=== PATIENT | male | born 1985 | race Caucasian/White ===

== ENCOUNTER 2020-04-02 13:13 | Emergency (ER) | payer SELFPAY ==
[~2020-04-02] VITALS: Ht 175.2 cm; Wt 59.0 kg
--- NOTE | 2020-04-02 13:51 | NUR ---
UPDATE TO MOTHER
[2020-04-02] MEDS ORDERED: NS IV 1000 ML 1,000 ML IV SCH (13:53)
[2020-04-02] MEDS ORDERED: HYDROcodone/APAP 7.5 MG/325 MG (LORTAB, LORCET PLUS) TABLET PO ONE (14:00)
[2020-04-02 14:19] LABS: BASOPHILS % (AUTO) 0 % (0-10); EOSINOPHILS # (AUTO) 0.1 10^3/uL (0.0-0.3); EOSINOPHILS % (AUTO) 1 % (0-10); HEMATOCRIT 37 % (40-54); HEMOGLOBIN 12.7 G/DL (13.3-17.7); LYMPHOCYTES # (AUTO) 1.4 X 10^3 (1.0-4.0); LYMPHOCYTES % (AUTO) 10 % (12-44); MEAN CORPUSCULAR HEMOGLOBIN 30 PG (25-34); MEAN CORPUSCULAR HGB CONC 34 G/DL (32-36); MEAN CORPUSCULAR VOLUME 89 FL (80-99); MEAN PLATELET VOLUME 11.1 FL (7.4-10.4); MONOCYTES % (AUTO) 7 % (0-12); NEUTROPHILS # (AUTO) 10.9 X 10^3 (1.8-7.8); NEUTROPHILS % (AUTO) 82 % (42-75); PLATELET COUNT 219 10^3/uL (130-400); WHITE BLOOD COUNT 13.3 10^3/uL (4.3-11.0)
[2020-04-02 14:29] LABS: ALBUMIN 3.3 GM/DL (3.2-4.5); CHLORIDE 95 MMOL/L (98-107); POTASSIUM 3.7 MMOL/L (3.6-5.0); SODIUM 131 MMOL/L (135-145)
[2020-04-02 14:30] LABS: CALCIUM 8.8 MG/DL (8.5-10.1)
[2020-04-02 14:32] LABS: INR 0.8 (0.8-1.4); PROTHROMBIN TIME PATIENT 11.5 SEC (12.2-14.7)
[2020-04-02 14:33] LABS: BILIRUBIN,TOTAL 0.4 MG/DL (0.1-1.0); CARBON DIOXIDE 26 MMOL/L (21-32)
[2020-04-02 14:35] LABS: ALKALINE PHOSPHATASE 164 U/L (40-136); CREATININE SERUM 1.06 MG/DL (0.60-1.30); GFR ESTIMATED > 60; GLUCOSE 605 MG/DL (70-105)
[2020-04-02 14:36] LABS: BUN/CREATININE RATIO 11
[2020-04-02] MEDS ORDERED: inSUlin (REGULAR) HUMAN 1 UNIT/0.01 ML (CHARGE PER UNIT) SC STA (14:37)
[2020-04-02 14:38] LABS: ALANINE AMINOTRANSFERASE 70 U/L (0-55)
--- NOTE | 2020-04-02 14:51 | NUR ---
TO MRI PER W/C
--- NOTE | 2020-04-02 14:51 | NUR ---
2ND BLOOD CUTURE DRAWN BY LAB
[2020-04-02] MEDS ORDERED: PIPERACILLIN SODIUM/TAZOBACTAM 4.5 GM in NS (IVPB) 100 ML IV ONE (15:45)
[2020-04-02] MEDS ORDERED: VANCOMYCIN INJECTION 1,000 MG in NS (IVPB) 250 ML IV ONE (15:45)
--- NOTE | 2020-04-02 15:56 | ED General ---
General Chief Complaint: General Problems/Pain Stated Complaint: HIGH BLOOD SUGAR/ ARM INFECTION Nursing Triage Note: AMB TO ROOM REPORTS IS TYPE I DIABETIC HAS NOT BEEN GOOD ABOUT SEEING HIS DR AND CHECKING HIS GLUCOSE. R ARM IS SWOLLEN USED IV METH 1 WEEK AGO. AND HELPED A FRIEND PULL OUT STAKES IN [place]ARD[place] NOTICED AFTER COULD NOT USE R ARM. ARM SWOLLEN. PATIENT REPORTS WAS DRINKING Nursing Sepsis Screen: No Definite Risk History of Present Illness Date Seen by Provider: Apr 02, 2020 Time Seen by Provider: 13:30 Initial Comments 34-year-old male who is a type I diabetic reports noticing erythema and pain in his right elbow for the last 3-4 days. He uses IV methamphetamines, last time was approximately one week and he did access at Right . He also reports 3-4 days ago he was helping pull fence with a friend and felt a tear in his right elbow and is concerned about his biceps tendon. He's been unable to flex or extend his right elbow secondary to the pain. He has no history of Wednesday elbow or arm injuries in the past. He uses Novolog 70/30 over the counter, no PCP. Is from [place], [place]. Plans to establish care with [facility]. Timing/Duration: 3-4 Days Severity: Severe Associated Systoms: No Fever/Chills; Malaise Allergies and Home Medications Allergies Coded Allergies: ketorolac (Verified Allergy, Unknown, 04/02/20) Patient Home Medication List Home Medication List Reviewed: Yes Review of Systems Review of Systems Constitutional: no symptoms reported, see HPI Musculoskeletal: see HPI, joint pain (right elbow) Skin: see HPI, other (erythema, warmth and swelling right upper extremity) All Other Systems Reviewed Negative Unless Noted: Yes Past Mmvjhsq-Gielyi-Amkjdf Hx Past Med/Social Hx: Reviewed Nursing Past Med/Soc Hx Patient Social History Alcohol Use: Denies Use Recreational Drug Use: Yes (METH AND POT) Smoking Status: Never a Smoker Recent Foreign Travel: No Contact w/Someone Who Travel: No Recent Infectious Disease Expo: No Past Medical History Surgeries: No Respiratory: No Cardiac: No Neurological: No Genitourinary: No Gastrointestinal: No Musculoskeletal: No Endocrine: Yes Diabetes, Insulin dep HEENT: No Cancer: No Psychosocial: No Integumentary: No Physical Exam Vital Signs Vital Signs - First Documented 04/02/20 04/02/20 13:27 17:00 Temp 36.9 Pulse 100 Resp 18 B/P (MAP) 130/83 (99) Pulse Ox 98 O2 Delivery Room Air Capillary Refill : Less Than 3 Seconds Height, Weight, BMI Height: '" Weight: lbs. oz. kg; 19.00 BMI Method: General Appearance: No Apparent Distress, WD/WN Eyes: Bilateral Eye Normal Inspection, Bilateral Eye PERRL, Bilateral Eye EOMI HEENT: PERRL/EOMI, TMs Normal, Normal ENT Inspection, Pharynx Normal Neck: Full Range of Motion, Normal Inspection, Non Tender, Supple Respiratory: Chest Non Tender, Lungs Clear, Normal Breath Sounds Cardiovascular: Regular Rate, Rhythm, No Edema, No Murmur, Normal Peripheral Pulses Gastrointestinal: Normal Bowel Sounds, Non Tender, Soft Extremity: Normal Capillary Refill, Normal Range of Motion (except right elbow) Neurologic/Psychiatric: Alert, Oriented x3, No Motor/Sensory Deficits, Normal Mood/Affect Skin: Normal Color, Warm/Dry Lymphatic: Other (right epitrochlear node tenderness) Comments Marked limitation of motion to right elbow, active and passive, secondary to pain. Neg wade sign. Tenderness at distal insertion of bicep tendon. Pain with resisted flexion of right elbow. Erythema to right elbow and [id number] cm. No abscess, mild induration, no fluctuance. Neuro vasc status intact right UE. No edema to right hand. Focused Exam Lactate Level 04/02/20 14:47: Lactic Acid Level 1.69 Lactic Acid Level Progress/Results/Core Measures Suspected Sepsis Recent Fever Within 48 Hours: No Infection Criteria Present: None New/Unexplained Altered Menta: No Sepsis Screen: No Definite Risk SIRS Temperature: Pulse: 100 Respiratory Rate: 18 Laboratory Tests 04/02/20 14:09: White Blood Count 13.3H Blood Pressure 130 /83 Mean: 99 04/02/20 14:47: Lactic Acid Level 1.69 Laboratory Tests 04/02/20 14:09: Creatinine 1.06, INR Comment 0.8, Platelet Count 219, Total Bilirubin 0.4 Results/Orders Lab Results Laboratory Tests Test 04/02/20 13:55 04/02/20 14:09 04/02/20 14:47 04/02/20 15:49 Range/Units Glucometer 546 *H 398 H 70-110 MG/DL White Blood Count 13.3 H 4.3-11.0 10^3/uL Red Blood Count 4.19 L 4.35-5.85 10^6/uL Hemoglobin 12.7 L 13.3-17.7 G/DL Hematocrit 37 L 40-54 % Mean Corpuscular Volume 89 80-99 FL Mean Corpuscular Hemoglobin 30 25-34 PG Mean Corpuscular Hemoglobin Concent 34 32-36 G/DL Red Cell Distribution Width 13.4 10.0-14.5 % Platelet Count 219 130-400 10^3/uL Mean Platelet Volume 11.1 H 7.4-10.4 FL Neutrophils (%) (Auto) 82 H 42-75 % Lymphocytes (%) (Auto) 10 L 12-44 % Monocytes (%) (Auto) 7 0-12 % Eosinophils (%) (Auto) 1 0-10 % Basophils (%) (Auto) 0 0-10 % Neutrophils # (Auto) 10.9 H 1.8-7.8 X 10^3 Lymphocytes # (Auto) 1.4 1.0-4.0 X 10^3 Monocytes # (Auto) 1.0 0.0-1.0 X 10^3 Eosinophils # (Auto) 0.1 0.0-0.3 10^3/uL Basophils # (Auto) 0.0 0.0-0.1 10^3/uL Prothrombin Time 11.5 L 12.2-14.7 SEC INR Comment 0.8 0.8-1.4 Activated Partial Thromboplast Time 25 24-35 SEC Sodium Level 131 L 135-145 MMOL/L Potassium Level 3.7 3.6-5.0 MMOL/L Chloride Level 95 L 98-107 MMOL/L Carbon Dioxide Level 26 21-32 MMOL/L Anion Gap 10 5-14 MMOL/L Blood Urea Nitrogen 12 7-18 MG/DL Creatinine 1.06 0.60-1.30 MG/DL Estimat Glomerular Filtration Rate > 60 BUN/Creatinine Ratio 11 Glucose Level 605 *H 70-105 MG/DL Calcium Level 8.8 8.5-10.1 MG/DL Corrected Calcium 9.4 8.5-10.1 MG/DL Total Bilirubin 0.4 0.1-1.0 MG/DL Aspartate Amino Transf (AST/SGOT) 27 5-34 U/L Alanine Aminotransferase (ALT/SGPT) 70 H 0-55 U/L Alkaline Phosphatase 164 H 40-136 U/L C-Reactive Protein High Sensitivity 26.96 H 0.00-0.50 MG/DL Total Protein 7.0 6.4-8.2 GM/DL Albumin 3.3 3.2-4.5 GM/DL Lactic Acid Level 1.69 0.50-2.00 MMOL/L Test 04/02/20 16:10 Range/Units Urine Color YELLOW Urine Clarity CLEAR Urine pH 6.5 5-9 Urine Specific [place] <=1.005 1.016-1.022 Urine Protein 1+ H NEGATIVE Urine Glucose (UA) 3+ H NEGATIVE Urine Ketones NEGATIVE NEGATIVE Urine Nitrite NEGATIVE NEGATIVE Urine Bilirubin NEGATIVE NEGATIVE Urine Urobilinogen 0.2 < = 1.0 MG/DL Urine Leukocyte Esterase NEGATIVE NEGATIVE Urine RBC (Auto) 2+ H NEGATIVE Urine RBC 5-10 H /HPF Urine WBC NONE /HPF Urine Squamous Epithelial Cells RARE /HPF Urine Crystals NONE /LPF Urine Bacteria NEGATIVE /HPF Urine Casts NONE /LPF Urine Mucus NEGATIVE /LPF Urine Culture Indicated NO Urine Opiates Screen POSITIVE H NEGATIVE Urine Oxycodone Screen NEGATIVE NEGATIVE Urine Methadone Screen NEGATIVE NEGATIVE Urine Propoxyphene Screen NEGATIVE NEGATIVE Urine Barbiturates Screen NEGATIVE NEGATIVE Ur Tricyclic Antidepressants Screen NEGATIVE NEGATIVE Urine Phencyclidine Screen NEGATIVE NEGATIVE Urine Amphetamines Screen POSITIVE H NEGATIVE Urine Methamphetamines Screen POSITIVE H NEGATIVE Urine Benzodiazepines Screen NEGATIVE NEGATIVE Urine Cocaine Screen NEGATIVE NEGATIVE Urine Cannabinoids Screen NEGATIVE NEGATIVE My Orders Orders - HEIDY CAMPBELL Accucheck Stat ONCE (04/02/20 13:23) Cbc With Automated Diff (04/02/20 13:53) Comprehensive Metabolic Panel (04/02/20 13:53) Blood Culture (04/02/20 13:53) Protime With Inr (04/02/20 13:53) Partial Thromboplastin Time (04/02/20 13:53) Ed Iv/Invasive Line Start (04/02/20 13:53) Ns Iv 1000 Ml (Sodium Chloride 0.9%) (04/02/20 13:53) Lactic Acid Analyzer (04/02/20 13:53) Hs C Reactive Protein (04/02/20 13:53) Drug Screen Stat (Urine) (04/02/20 13:53) Ua Culture If Indicated (04/02/20 13:53) Hydrocodone/Apap 7.5/325 Tab (Lortab 7. (04/02/20 14:00) Mri Rt Upper Ext Joint W/O (04/02/20 14:32) Insulin (Regular) Human (Novolin R (Per (04/02/20 14:37) Piperacillin Sodium/Tazobactam (Zosyn Vi (04/02/20 15:45) Vancomycin Injection (Vancomycin Injecti (04/02/20 15:45) Accucheck Stat ONCE (04/02/20 15:36) Piperacillin Sodium/Tazobactam (Zosyn Vi (04/02/20 15:59) Ns (Ivpb) (Sodium Chloride 0.9% Ivpb Bag (04/02/20 16:01) Water (Sterile) For Injection (Sterile W (04/02/20 16:01) Medications Given in ED Current Medications Medications Dose Ordered Sig/Tucker Route Start Time Stop Time Status Last Admin Dose Admin Acetaminophen/ Hydrocodone Bitart 1 ea ONCE ONCE PO 04/02/20 14:00 04/02/20 14:01 DC 04/02/20 14:18 1 EA Piperacillin Sod/ Tazobactam Sod 4.5 gm/Sodium Chloride 100 ml @ 200 mls/hr ONCE ONCE IV 04/02/20 15:45 04/02/20 16:15 DC 04/02/20 16:34 200 MLS/HR Vital Signs/I&O 04/02/20 04/02/20 13:27 17:00 Temp 36.9 Pulse 100 88 Resp 18 18 B/P (MAP) 130/83 (99) 134/90 Pulse Ox 98 98 O2 Delivery Room Air Capillary Refill : Less Than 3 Seconds Blood Pressure Mean: 99 Point of Care Testing Finger Stick Blood Glucose: 398 Blood Glucose Action Taken: HEIDY CAMPBELL APRN NOTIFIED Progress Note : Time: 13:30 Progress Note Patient seen and evaluated, will start normal saline 1 L IV, labs, hydrocodone code and for pain. CT right arm. Accucheck 546 1400 Spoke to radiology, would prefer we do an MRI of the right elbow. Will change from CT the MRI. Glucose 605, Regular insulin 5 units subcutaneous. Dylan mendez agreeable, spoke to mother by phone, she will transport him. [address] Hope, due to diversion on Med-Surg floor her, she will admit to [facility]. Awaiting MRI. Zosyn and Vanc for cellulitis. 1600 Accucheck [address] Hope at [facility]. Mother to transport. IV Removed. Patient stable. Sling to right arm. Diagnostic Imaging Diagonstic Imaging: MRI Plain Films/CT/US/NM/MRI: other (right elbow) Comments NAME: KALLIE RAMON [facility] REC#: [id number] PT STATUS: REG ER : 1985 PHYSICIAN: HEIDY CAMPBELL ADMIT DATE: 04/02/20/ER Draft Date of Exam:04/02/20 MRI RT UPPER EXT JOINT W/O PROCEDURE: MRI right joint upper extremity without contrast. TECHNIQUE: Multiplanar, multisequence non contrast-enhanced MRI of the right upper extremity was accomplished. INDICATION: Ruptured biceps tendon and cellulitis in the right arm. COMPARISON: None. FINDINGS: The [id number] is large, and an alternative coil was used for evaluation. No acute fracture is seen at the right elbow. Alignment appears normal. There is a moderate elbow joint effusion. There is partial tearing of the distal biceps tendon. There is marked edema in the brachialis and biceps musculature with an intramuscular hematoma measuring 3.5 x 1.0 cm on axial imaging (image 21 series 8), and 6.4 cm craniocaudal. There is edema in the supinator muscle, brachioradialis muscle, and pronator teres muscle. The triceps tendon is intact. The common flexor and common extensor tendons appear intact. The ulnar collateral ligament and the radial collateral ligamentous complex appear intact. No muscular atrophy is seen. There is moderate subcutaneous edema about the right elbow. IMPRESSION: 1. Partial tearing of the distal biceps tendon with a moderate-sized hematoma. There is edema about the surrounding musculature which may be reactive or due to strain. 2. Superficial soft tissue edema is consistent with the history of cellulitis and infection of the deep soft tissue hematoma is not excluded. 3. No acute osseous abnormality is seen in the right elbow. Dictated on workstation # [id number] Dict: 04/02/20 1600 Trans: 04/02/20 1614 [facility] [id number] Interpreted by: CONSTANTINO SAPP MD Electronically signed by: Reviewed: Reviewed by Me Departure Impression Primary Impression: IV drug user Additional Impressions: Cellulitis of right arm Type I diabetes mellitus Qualified Codes: E10.65 - Type 1 diabetes mellitus with hyperglycemia Hyperglycemia Traumatic partial tear of right biceps tendon Qualified Codes: S46.211A - Strain of muscle, fascia and tendon of other parts of biceps, right arm, initial encounter Disposition: XFER SHT-TRM HOSP Condition: Stable Transfer Transfer Reason: Diversion Time Spoke to Accepting Phy: 15:[address] Hope agreed to accept patient and admit to [facility]. Transfer Time: 16:30 Transfer Facility: [facility] Departure-Patient Inst. Add. Discharge Instructions: Go directly to [facility], directions provided. All discharge instructions reviewed with patient and/or family. Voiced understanding. Copy Copies To 1: DOROTHEA HOPE AMY ARNP Apr 02, 2020 15:56
[2020-04-02] MEDS ORDERED: PIPERACILLIN/TAZO 4.5 GM VIAL (ZOSYN) IV ONE (15:59)
[2020-04-02] MEDS ORDERED: NS (IVPB) 100 ML ONE (16:01)
[2020-04-02] MEDS ORDERED: WATER (STERILE) FOR INJECTION 0 ML ONE (16:01)
--- NOTE | 2020-04-02 16:14 | Diagnostic Imaging Report ---
PROCEDURE: MRI right joint upper extremity without contrast. TECHNIQUE: Multiplanar, multisequence non contrast-enhanced MRI of the right upper extremity was accomplished. INDICATION: Ruptured biceps tendon and cellulitis in the right arm. COMPARISON: None. FINDINGS: The [id number] is large, and an alternative coil was used for evaluation. No acute fracture is seen at the right elbow. Alignment appears normal. There is a moderate elbow joint effusion. There is partial tearing of the distal biceps tendon. There is marked edema in the brachialis and biceps musculature with an intramuscular hematoma measuring 3.5 x 1.0 cm on axial imaging (image 21 series 8), and 6.4 cm craniocaudal. There is edema in the supinator muscle, brachioradialis muscle, and pronator teres muscle. The triceps tendon is intact. The common flexor and common extensor tendons appear intact. The ulnar collateral ligament and the radial collateral ligamentous complex appear intact. No muscular atrophy is seen. There is moderate subcutaneous edema about the right elbow. IMPRESSION: 1. Partial tearing of the distal biceps tendon with a moderate-sized hematoma. There is edema about the surrounding musculature which may be reactive or due to strain. 2. Superficial soft tissue edema is consistent with the history of cellulitis and infection of the deep soft tissue hematoma is not excluded. 3. No acute osseous abnormality is seen in the right elbow. Dictated by: Dictated on workstation # [id number]
[2020-04-02 16:21] LABS: BILIRUBIN,URINE NEGATIVE (NEGATIVE); CLARITY,URINE CLEAR; COLOR,URINE YELLOW; GLUCOSE, URINE (UA) 3+ (NEGATIVE); KETONES,URINE NEGATIVE (NEGATIVE); LEUKOCYTE ESTERASE ,URINE NEGATIVE (NEGATIVE); NITRITE,URINE NEGATIVE (NEGATIVE); PH,URINE 6.5 (5-9); PROTEIN,URINE 1+ (NEGATIVE)
[2020-04-02 16:27] LABS: BACTERIA,URINE NEGATIVE /HPF; SQUAMOUS EPITHELIAL CELL,UR RARE /HPF
[2020-04-02 16:34] LABS: AMPHETAMINE SCREEN, URINE POSITIVE (NEGATIVE); BARBITURATE SCREEN URINE NEGATIVE (NEGATIVE); BENZODIAZEPINES SCREEN URINE NEGATIVE (NEGATIVE); CANNABINOID SCREEN, URINE NEGATIVE (NEGATIVE); COCAINE SCREEN URINE NEGATIVE (NEGATIVE); METHADONE STAT NEGATIVE (NEGATIVE); METHAMPHETAMINE SCREEN URINE S POSITIVE (NEGATIVE); OPIATE SCREEN URINE POSITIVE (NEGATIVE); OXYCODONE STAT NEGATIVE (NEGATIVE); PROPOXYPHENE STAT NEGATIVE (NEGATIVE); TRICYCLIC ANTIDEPRESSANTS SCRE NEGATIVE (NEGATIVE)
[2020-04-02 17:00] VITALS: BP 134/90
--- NOTE | 2020-04-02 17:00 | NUR ---
IV REMOVED FOR TRANSFER TO [facility].
== END 2020-04-02 17:22 | disposition short-term general hospital (02) ==
LOC: ER 13:22
DX: S46.221A Laceration of muscle, fascia and tendon of other parts of biceps, right arm, initial encounter (principal); E10.65 Type 1 diabetes mellitus with hyperglycemia; L03.113 Cellulitis of right upper limb; F15.90 Other stimulant use, unspecified, uncomplicated; Z88.6 Allergy status to analgesic agent; W26.8XXA Contact with other sharp object(s), not elsewhere classified, initial encounter
CPT/HCPCS: 36415; 73221; 80053; 80306; 81000; 82962; 83605; 85025; 85610; 85730; 86141; 87040